=== PATIENT | female | born 1985 | race Caucasian/White ===

== ENCOUNTER 2021-06-23 16:42 | Emergency (ER) | payer OTHER, BC, SELFPAY ==
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
[2021-06-23 17:23] VITALS: BP 118/82; PULSE 92; RESP 17; TEMP 36.8; O2SAT 100; BMI 20.9
--- NOTE | 2021-06-23 17:51 | PC.NURSE ---
lab here for blood draw
[2021-06-23 17:59] LABS: Basophils # 0.3 K/mm3 (0-0.2); Basophils % 3.3 % (0.1-2.0); Eosinophils # 0.3 K/mm3 (0.0-0.4); Eosinophils % 3.4 % (0.1-12.0); Hemoglobin 14.5 g/dL (12.2-16.2); Lymphocytes # 1.2 K/mm3 (0.7-4.5); Lymphocytes % 15.6 % (10-50); Mean Corpuscular HGB Conc 34.4 g/dL (31.8-35.4); Mean Corpuscular Hemoglobin 32.8 pg (27.0-31.2); Mean Corpuscular Volume 95.3 fl (81-99); Monocytes # 0.4 K/mm3 (0.1-1.0); Monocytes % 4.7 % (1.7-9.3); Neutrophils # 5.7 K/mm3 (1.8-7.8); Neutrophils % 73.1 % (37.0-80.0); Platelet Count 221 K/mm3 (142-424); Red Blood Count 4.41 M/mm3 (4.20-5.40); Red Cell Distribution Width 12.6 % (11.5-17.5); White Blood Count 7.8 K/mm3 (4.8-10.8)
[2021-06-23 18:08] LABS: Alanine Aminotransferase 19 U/L (12-78); Albumin Level 4.7 g/dl (3.5-5.0); Albumin/Globulin Ratio 1.8 (1.1-1.8); Alkaline Phosphatase 67 U/L (38-126); Anion Gap 12.9 mEq/L (5-15); Aspartate Amino Transferase 25 U/L (14-36); Bilirubin,Total 0.2 mg/dl (0.2-1.3); Blood Urea Nitrogen 11 mg/dl (7-17); Calcium 9.3 mg/dl (8.4-10.2); Carbon Dioxide 25 mmol/L (22.0-30.0); Chloride 104 mmol/L (98-107); Creatinine Clearance Estimated 80 mL/min (50-200); Estimated Glomerular Filt Rate 70 ml/min (>60); GFR (African American) 85 ML/MIN (>60); Globulin 2.6 g/dL (1.3-3.2); Glucose 105 mg/dl (74-100); Potassium 3.9 mmoL/L (3.5-5.1); Sodium 138 mmol/L (136-145); Total Protein,Serum 7.3 g/dl (6.3-8.2)
[2021-06-23 18:10] LABS: HCG Qualitative, Serum Negative (Negative)
[2021-06-23 19:30] VITALS: BP 118/80; PULSE 89; RESP 18; TEMP 36.8; O2SAT 98
== END 2021-06-23 19:32 | disposition home or self-care (01) ==
PROVIDERS: Emergency Provider Emergency Medicine; PCP Family Medicine
DX: S10.91XA Abrasion of unspecified part of neck, initial encounter (principal); S40.212A Abrasion of left shoulder, initial encounter; V87.7XXA Person injured in collision between other specified motor vehicles (traffic), initial encounter
CPT/HCPCS: 36415; 80053; 84703; 85025; 99283

== ENCOUNTER → 2022-05-27 13:26 | Outpatient (CLI) | payer BC, SELFPAY ==
--- NOTE | 2022-05-27 13:34 | MM_ITS ---
PROCEDURE INFORMATION: Exam: US Right Breast, Complete MG Right Diagnostic Breast Tomosynthesis Exam date and time: 05/27/2022 1:35 PM Age: 36 years old Clinical indication: Right breast palpable lump; axillary tail TECHNIQUE: Imaging protocol: Complete ultrasound of all four quadrants of the right breast and the retroareolar regions, including ultrasound of the axilla when performed. Right Diagnostic tomosynthesis and 2D mammography including computer-aided detection (CAD) when performed. Unilateral or bilateral exam. COMPARISON: No relevant prior studies available. FINDINGS: MAMMOGRAPHY: The breast tissue is composed of scattered areas of fibroglandular density. There is no stellate mass, architectural distortion or suspicious microcalcifications to suggest malignancy. Ovoid 1 cm well-circumscribed mass in the middle third of the right medial breast only well seen in the craniocaudal projection.Subpectoral saline breast implant is present . No skin thickening or axillary adenopathy. ULTRASOUND: Sonographic images of the right breast including the retroareolar region, all 4 quadrants and the axilla do not demonstrate any solid masses. This is with particular attention to the axillary tail where the patient reports a palpable abnormality. 1 cm cyst in the right 3 o'clock axis 4 cm from the nipple corresponding to the mass on mammography. Intact implant. No architectural distortion or acoustical shadowing. No skin thickening or axillary adenopathy. IMPRESSION: Palpable abnormality in the right breast corresponds both mammographically and sonographically to normal fibroglandular structures. There is no mammographic evidence of malignancy. Further evaluation of a palpable abnormality should be based on clinical grounds regardless of radiographic findings or lack thereof. Annual bilateral mammographic screening is recommended to commence at the age of 40 unless otherwise clinically indicated. ASSESSMENT: BI-RADS Category 2: Benign
== END ==
LOC: RAD 13:27
PROVIDERS: PCP Family Medicine; Visit Provider Nurse Practitioner
DX: N63.31 Unspecified lump in axillary tail of the right breast (principal)
CPT/HCPCS: 76641; 77061; 77065; G0279